=== PATIENT | female | born 1995 | race African-American/Black ===

== ENCOUNTER 2021-12-21 17:53 | Emergency (ER) | payer OTHER, SELFPAY ==
[2021-12-21 18:09] VITALS: BP 122/77; PULSE 114; RESP 16; TEMP 39.4; O2SAT 99
--- NOTE | 2021-12-21 18:34 | ED.URI ---
HPI - URI/Sore Throat General Chief Complaint: Upper Respiratory Infection Stated Complaint: Sore Throat, Fatique,Fever Time Seen by Provider: 12/21/21 18:35 Source: patient and RN notes reviewed Mode of arrival: ambulatory Limitations: no limitations History of Present Illness HPI Narrative: 26 y/o female presented for c/o headache, body aches, sinus pressure/congestion, cough, fever/chills. Onset 2 days. Sister positive for Covid today, Dtr positive flu this week. Denies shortness of breath, wheezing, nausea, vomiting or diarrhea. Taking Viola-Marsing for symptoms. MD elicited complaint: cough Related Data Allergies Allergy/AdvReac Type Severity Reaction Status Date / Time No Known Allergies Allergy Verified 12/21/21 18:05 Review of Systems Review of Systems: CONSTITUTIONAL: Endorses malaise, chills, sweats, fever EYES: Denies visual changes, redness, or discharge ENT: Reports rhinorrhea, congestion, sinus pain, denies otalgia, sore throat CARDIOVASCULAR: Denies chest pain, palpitations, edema RESPIRATORY: Reports cough, post nasal drainage. Denies dyspnea GASTROINTESTINAL: Denies abdominal pain, nausea, vomiting, diarrhea SKIN: Denies rash or itching MUSCULOSKELETAL: Endorses myalgia NEUROLOGIC: Denies headache Exam Narrative: GENERAL: Ill-appearing, nontoxic EYES: conjunctivae clear ENT: Mucous membranes moist. TMs pearly [place] with light reflex bilaterally; no tragal tenderness. Oropharynx erythematous without lesions or exudate CHEST: Clear to auscultation, breath sounds equal. No wheezing, rhonchi, rales, or stridor. No respiratory distress, speaks in full sentences. HEART: Regular rate and rhythm. SKIN: Warm, dry, no rash. NEURO: Alert and oriented x3. PSYCH: Normal mood and affect Course Course Emergency Course: Patient is aware of diagnosis, understands and agrees to treatment plan. Anticipatory guidance given. Patient agrees to follow-up as directed and is aware of reasons to seek care at the emergency department. Portions of this record may have been created with voice recognition software Level of Care: Express Care Visit Vital Signs Vital signs: Vital Signs Temperature 103.0 F H 12/21/21 18:09 Pulse Rate 114 H 12/21/21 18:09 Respiratory Rate 16 12/21/21 18:09 Blood Pressure 122/77 12/21/21 18:09 Pulse Oximetry 99 12/21/21 18:09 Oxygen Delivery Room Air 12/21/21 18:09 Temperature 103.0 F H 12/21/21 18:09 Pulse Rate 114 H 12/21/21 18:09 Respiratory Rate 16 12/21/21 18:09 Blood Pressure 122/77 12/21/21 18:09 Pulse Oximetry 99 12/21/21 18:09 Oxygen Delivery Room Air 12/21/21 18:09 reviewed MDM - URI/Sore Throat MDM Narrative Medical decision making narrative: Temp rechecked down to 100.2 per RN. COVID and flu negative. Results reviewed with patient. Advised supportive measures and signs/symptoms to go to the ER. Pt is appropriate for outpt treatment and f/u. Differential Diagnosis Differential diagnosis: Likely upper respiratory infection, sinusitis and viral infection Lab Data Labs: Lab Results 12/21/21 Range/Units 18:15 POC SARS CoV-2 Ag Negative (Negative) Influenza A Screen Negative Reference Range: Negative Influenza B Screen Negative Reference Range: Negative Discharge Plan Discharge Clinical Impression: Viral infection Patient Disposition: Home, Self-Care Condition: Stable Instructions: Viral Syndrome (ED) Additional Instructions: Flu and COVID negative. Recommend continue general precautions based on your symptoms and known exposure You can return to work when your fever free for 24 hours without the use of fever reducing medications Recommend Flonase spray and Zyrtec (or Claritin/Sue) for sinus congestion over the counter Cough syrup may cause drowsiness; avoid driving or kenny
[2021-12-21] MEDS: IBUPROFEN 400 MG TABLET 800 MG PO (19:00)
== END 2021-12-21 19:14 | disposition home or self-care (01) ==
PROVIDERS: Emergency Provider Nurse Practitioner Family
DX: B34.9 Viral infection, unspecified (principal); Z20.822 Contact with and (suspected) exposure to COVID-19
CPT/HCPCS: 87426; 87804; 99203; A9270; C9803; G0463

== ENCOUNTER 2022-12-07 09:10 | Emergency (ER) | payer OTHER, SELFPAY ==
--- NOTE | ~2022-12-07 | XR_ITS ---
EXAMINATION: XR chest 1V portable DATE: 12/07/2022 09:27 INDICATION: Chest pain. TECHNIQUE: A single frontal view of the chest was obtained. COMPARISON: None. FINDINGS: There is no pneumonia, pleural effusion, or pneumothorax. The heart size is normal. IMPRESSION: 1. No acute cardiopulmonary disease. Reviewed, dictated and finalized at location E.
--- NOTE | 2022-12-07 09:15 | ECG_ITS ---
Measurements Intervals [place] Rate: 76 P: 67 WA: 180 QRS: 66 QRSD: 98 T: 13 QT: 401 QTc: 452 Interpretive Statements SINUS RHYTHM NO PREVIOUS ECG AVAILABLE FOR COMPARISON Electronically Signed On 12-07-2022 12:58:28 CDT by Smitha Milligan M.D.
[2022-12-07 09:17] VITALS: BP 143/86; PULSE 69; RESP 16; TEMP 36.8; O2SAT 100
[2022-12-07 09:31] VITALS: BP 143/83; PULSE 64; RESP 17; TEMP 36.8; O2SAT 100
[2022-12-07 10:07] VITALS: BP 149/89; PULSE 56; RESP 18; O2SAT 100
[2022-12-07 10:13] LABS: Basophils Absolute Auto 0.1 K/mm3 (0.0-0.1); Basophils Percent Auto 0.8 % (0.2-1.2); Eosinophils Absolute Auto 0.2 K/mm3 (0-0.3); Eosinophils Percent Auto 2.3 % (0-4.4); Hematocrit 39.4 % (37.0-47.0); Hemoglobin 12.7 g/dL (12.0-15.0); Immature Granulocyte Absolute 0.01 K/mm3 (0.00-0.031); Immature Granulocyte Percent A 0.2 % (0-0.5); Lymphocytes Absolute Auto 2.23 K/mm3 (0.9-3.2); Lymphocytes Percent Auto 33.7 % (18.3-44.2); Mean Corpuscular HGB Conc 32.2 g/dl (32-36); Mean Corpuscular Hemoglobin 27.5 pg (26-34); Mean Corpuscular Volume 85.5 fl (80-100); Mean Platelet Volume 10.3 fl (7.4-10.4); Monocytes Absolute Auto 0.4 K/mm3 (0.1-0.6); Neutrophils Absolute Auto 3.8 K/mm3 (1.3-6.7); Platelet Count Result 311 k/mm3 (150-375); Red Blood Count 4.61 M/mm3 (4.2-5.4); Red Cell Distribution Width 14.2 % (11.5-14.5); White Blood Count 6.6 K/mm3 (4.5-10.0)
[2022-12-07 10:23] LABS: Alanine Aminotransferase 18 U/L (6-35); Albumin Level 4.2 g/dL (3.5-5.1); Alkaline Phosphatase 68 U/L (38-126); Anion Gap 8 mmol/L (8-16); Aspartate Amino Transferase 21 U/L (14-36); Bilirubin,Total 0.5 mg/dL (0.2-1.3); Blood Urea Nitrogen 12 mg/dL (7-17); Calcium 8.9 mg/dL (8.4-10.2); Carbon Dioxide 25 mmol/L (22-30); Chloride 106 mmol/L (98-107); Estimated CRCL calculation 174 ml/min; Estimated Glomerular Filt Rate > 60; Glucose 92 mg/dL (65-110); Lipase 27 U/L (23-300); Potassium 3.8 mmol/L (3.4-5.0); Sodium 139 mmol/L (137-145)
[2022-12-07 10:35] LABS: Troponin I < 0.012 ng/mL (0.000-0.034)
[2022-12-07 10:39] VITALS: BP 125/79; PULSE 60; RESP 13; O2SAT 99
[2022-12-07 11:11] VITALS: BP 145/91; PULSE 61; RESP 19; O2SAT 100
--- NOTE | 2022-12-07 18:58 | ED.CHESTPAIN ---
HPI - Chest Pain General Chief Complaint: Chest Pain Stated Complaint: chest pain onsey 12/06 @ 1999 Time Seen by Provider: 12/07/22 09:15 History of Present Illness HPI narrative: Patient presenting here with chest pain, started last night and has been constant, states that it is to her left chest, does not radiate. No difficulty breathing, nausea or vomiting. Is worse with certain movements of her left arm, does not think she hurt herself recently. Related Data Allergies Allergy/AdvReac Type Severity Reaction Status Date / Time No Known Allergies Allergy Verified 12/07/22 09:46 Review of Systems Review of Systems: CONST: No fever. HEENT: No sore throat C/V: chest pain RESP: No cough GI: No abdominal pain : No dysuria. M/S: No joint pain. SKIN: No rash. NEURO: [No headache or focal numbness or weakness] PSYCH: [No depression] Exam Narrative: EXAMINATION OF ORGAN SYSTEMS/BODY AREAS: Constitutional: Vital signs per nursing GENERAL:[No acute distress, non-toxic appearing.] HEAD: Normal with no signs of head trauma. EYES: EOMI, conjunctiva normal ENT: Hearing grossly intact LUNGS: Nonlabored breathing. Clear to auscultation bilaterally HEART: [Regular rate and rhythm] ABD: [Soft], [nontender to palpation] EXT: Normal range of motion SKIN: [No rashes or lesions.] NEURO: [Alert and oriented x 3. No gross focal sensory or strength deficits.] PSYCH: Normal affect Course Vital Signs Vital signs: Vital Signs Temperature 98.2 F 12/07/22 09:17 Pulse Rate 69 12/07/22 09:17 Respiratory Rate 16 12/07/22 09:17 Blood Pressure 143/86 H 12/07/22 09:17 Pulse Oximetry 100 12/07/22 09:17 Oxygen Delivery Room Air 12/07/22 09:17 Temperature 98.2 F 12/07/22 09:31 Pulse Rate 61 12/07/22 11:11 Respiratory Rate 19 12/07/22 11:11 Blood Pressure 145/91 H 12/07/22 11:11 Pulse Oximetry 100 12/07/22 11:11 Oxygen Delivery Room Air 12/07/22 09:31 MDM - Chest Pain MDM Narrative Medical decision making narrative: ED COURSE AND MEDICAL DECISION MAKINF presenting with chest pain. EKG done in triage negative for acute ischemic changes. Cardiac workup is initiated. EKG: Performed in triage and interpreted by me. Normal sinus rhythm. Rate [76]. Normal axis. WI normal. QRS duration normal. QTc normal. No pathologic Q waves. No ST segment elevation or depression to suggest acute ischemia. No RV strain pattern. HEART score is 0 with no acute ischemic changes on EKG and negative troponin making ACS unlikely. Wells low risk with negative PERC making PE unlikely. Presentation not consistent with dissection or aneurysm without radiation of pain or pulse deficits. CXR negative for mediastinal widening. No abdominal pain or signs of sepsis that would be concerning for esophageal perforation or mediastinitis. No cardiomegaly or JVD to suggest pericardial effusion/tamponade. On repeat evaluation just prior to discharge, the patient is no acute distress. I had a long discussion with the patient and with shared decision making, she is comfortable with outpatient management. She was given clear return instructions by myself in person as well as on discharge paperwork. Lab Data 12/07/22 10:09 12/07/22 10:09 Labs: Lab Results 12/07/22 Range/Units 10:09 WBC 6.6 (4.5-10.0) K/mm3 RBC 4.61 (4.2-5.4) M/mm3 Hgb 12.7 (12.0-15.0) g/dL Hct 39.4 (37.0-47.0) % MCV 85.5 (80-100) fl MCH 27.5 (26-34) pg MCHC 32.2 (32-36) g/dl RDW 14.2 (11.5-14.5) % Plt Count 311 (150-375) k/mm3 MPV 10.3 (7.4-10.4) fl Immature Gran % (Auto) 0.2 (0-0.5) % Neut % (Auto) 57.0 (45.5-73.1) % Lymph % (Auto) 33.7 (18.3-44.2) % Steele % (Auto) 6.0 (2.6-8.5) % Eos % (Auto) 2.3 (0-4.4) % Baso % (Auto) 0.8 (0.2-1.2) % Lymph # (Auto) 2.23 (0.9-3.2) K/mm3 Steele # (Auto) 0.4 (0.1-0.6) K/mm3 Eos # (Auto) 0.2 (0-0.3) K/mm3 Baso # (Auto) 0.1
== END 2022-12-07 11:12 | disposition home or self-care (01) ==
PROVIDERS: Emergency Provider Emergency Medicine
DX: R07.9 Chest pain, unspecified (principal)
CPT/HCPCS: 36415; 71045; 80053; 83690; 84484; 85025; 93005; 99284

== ENCOUNTER 2023-02-28 13:58 | Emergency (ER) | payer SELFPAY ==
[2023-02-28 14:09] VITALS: BP 135/98; PULSE 108; RESP 16; TEMP 38.8; O2SAT 99
[2023-02-28 14:34] VITALS: TEMP 38.8
[2023-02-28] MEDS: ACETAMINOPHEN 500 MG TABLET 1000 MG PO (14:34)
--- NOTE | 2023-02-28 14:37 | ED.URI ---
HPI - URI/Sore Throat General Chief Complaint: Upper Respiratory Infection Stated Complaint: bodyaches,headache,tight chest,feverish Time Seen by Provider: 02/28/23 14:25 Source: patient Mode of arrival: ambulatory Limitations: no limitations History of Present Illness HPI Narrative: 27 yo F presents with c/o nasal congestion, scratchy throat, bodyaches, chills, cough and feverish starting last night. did not check temp. Not taking any medications to treat symptoms. Denies N/v/d. all systems reviewed and negative except as noted above. Related Data Allergies Allergy/AdvReac Type Severity Reaction Status Date / Time No Known Allergies Allergy Verified 02/28/23 14:07 Review of Systems Review of Systems: CONSTITUTIONAL: Denies fever, chills, or sweats. reports fatigue. EYES: Denies visual changes, redness, or discharge. ENT: reports rhinorrhea, congestion, sore throat. Denies otalgia. CARDIOVASCULAR: Denies chest pain, palpitations, or edema. RESPIRATORY: Reports cough . Denies dyspnea. GASTROINTESTINAL: Denies abdominal pain, nausea, vomiting, or diarrhea. GENITOURINARY: Denies dysuria or hematuria. SKIN: Denies rash or itching. MUSCULOSKELETAL: Denies back pain, joint pain, or myalgia. NEUROLOGIC: Denies headache, numbness, or weakness. PSYCHIATRIC: Denies anxiety or depression. All other systems reviewed are negative, except as documented in HPI. PMFSH Comments At time of signature, agree with nursing past medical, surgical, social and family history. There is no relevant family history pertinent to the presenting complaint. Exam Narrative: GENERAL: This is a well-nourished, well-developed patient, in no apparent distress. HEAD: normocephalic, atraumatic. EYES: PERRL. Sclera clear/white. Vision is grossly intact. EARS: External ears normal, auditory canals clear and without drainage, TMs normal without perforation. Hearing grossly intact. NOSE: External nose normal with clear nasal drainage THROAT: Mucous membranes moist, posterior pharynx clear. NECK: Neck supple, non-tender without lymphadenopathy, masses or thyromegaly. CARDIOVASCULAR: Regular rate and rhythm without murmurs, gallops, or rubs. RESPIRATORY: Clear to auscultation. Breath sounds equal bilaterally. No wheezes, rales, or rhonchi. SKIN: warm, Dry, intact with no suspicious lesions or rash, good texture and turgor. NEURO: awake, alert, and oriented to person, place and time. There were no obvious focal neurologic abnormalities. EXTREMITIES: No joint tenderness, effusion, or edema noted. Course Course Level of Care: Express Care Visit Vital Signs Vital signs: Vital Signs Temperature 38.8 C H 02/28/23 14:09 Pulse Rate 108 H 02/28/23 14:09 Respiratory Rate 16 02/28/23 14:09 Blood Pressure 135/98 H 02/28/23 14:09 Pulse Oximetry 99 02/28/23 14:09 Oxygen Delivery Room Air 02/28/23 14:09 Temperature 38.8 C H 02/28/23 14:34 Pulse Rate 108 H 02/28/23 14:09 Respiratory Rate 16 02/28/23 14:09 Blood Pressure 135/98 H 02/28/23 14:09 Pulse Oximetry 99 02/28/23 14:09 Oxygen Delivery Room Air 02/28/23 14:09 reviewed, patient given Tylenol to treat fever MDM - URI/Sore Throat MDM Narrative Medical decision making narrative: At time of signature, agree with nursing past medical, surgical, social and family history. There is no relevant family history pertinent to the presenting complaint. Differential Diagnosis Differential diagnosis: Likely upper respiratory infection and viral infection Lab Data Labs: Influenza A Screen Negative Reference Range: Negative Influenza B Screen Negative Reference Range: Negative Discharge Plan Discharge Clinical Impression: Viral upper respiratory infection Patient Disposition: Home, Self-Care Condition: Stable Instructio
== END 2023-02-28 14:43 | disposition home or self-care (01) ==
PROVIDERS: Emergency Provider Nurse Practitioner Family
DX: J06.9 Acute upper respiratory infection, unspecified (principal)
CPT/HCPCS: 87426; 87804; 99213; A9270; G0463

== ENCOUNTER 2024-03-12 17:50 | Emergency (ER) | payer SELFPAY ==
[2024-03-12 18:05] VITALS: BP 120/73; PULSE 120; RESP 16; TEMP 39; O2SAT 99
[2024-03-12 18:54] LABS: EDCOVIDSCREEN Negative (Negative); EDINFLUASCREEN Positive (Negative); EDINFLUBSCREEN Negative (Negative)
--- NOTE | 2024-03-12 19:04 | ED.URI ---
HPI - URI/Sore Throat General Chief Complaint: Upper Respiratory Infection Stated Complaint: fever,BORJA,bodyaches,fatigue Time Seen by Provider: 03/12/24 18:48 Source: patient and RN notes reviewed Mode of arrival: ambulatory Limitations: no limitations History of Present Illness HPI Narrative: Patient presents today with a 2 day history of fever up to 103, headache, body aches, fatigue, congestion, rhinorrhea, cough. Denies shortness of breath or chest pain. She has tried ibuprofen without much relief. Son with similar symptoms. Related Data Allergies Allergy/AdvReac Type Severity Reaction Status Date / Time No Known Allergies Allergy Verified 03/12/24 18:09 Review of Systems Review of Systems: CONSTITUTIONAL: + body aches, fever, fatigue EYES: Denies visual changes, redness, or discharge. ENT: Denies sore throat, or otalgia.+ rhinorrhea, congestion CARDIOVASCULAR: Denies chest pain, palpitations, or edema. RESPIRATORY: Denies dyspnea.+ cough GASTROINTESTINAL: Denies abdominal pain, nausea, vomiting, or diarrhea. GENITOURINARY: Denies dysuria or hematuria. SKIN: Denies rash, itching, or wounds. MUSCULOSKELETAL: Denies back pain, joint pain, or myalgia. NEUROLOGIC: Denies numbness, tingling, or weakness.+ headache PSYCH: Denies depression or anxiety. PMFSH Comments At time of signature, I have reviewed and agree with nursing past medical, surgical, social and family history unless otherwise noted. Please see nursing chart for further information. There is no relevant family history pertinent to the presenting complaint Exam Narrative: GENERAL: Mildly ill-appearing, well-nourished, and in no acute distress. HEAD: Normocephalic, atraumatic. EYES: EOMI. No redness or drainage. Conjunctivae normal. ENT: Mucous membranes pink and moist. Nares congested. No rhinorrhea. TMs normal bilaterally. Throat normal. Uvula midline. NECK: Normal AROM. Supple. No lymphadenopathy. CHEST: No respiratory distress. Clear to auscultation. HEART: Tachycardia. Normal rhythm. No murmur appreciated. EXTREMITIES: Normal range of motion. No edema. SKIN: Warm, dry, no rash. Capillary refill normal. Normal skin turgor. NEURO: No focal deficits. Alert and oriented x3. Gait steady. PSYCH: Normal affect. No signs of depression or anxiety. Course Course Level of Care: Express Care Visit Vital Signs Vital signs: Vital Signs Temperature 102.2 F H 03/12/24 18:05 Pulse Rate 120 H 03/12/24 18:05 Respiratory Rate 16 03/12/24 18:05 Blood Pressure 120/73 03/12/24 18:05 Pulse Oximetry 99 03/12/24 18:05 Oxygen Delivery Room Air 03/12/24 18:05 Temperature 102.2 F H 03/12/24 18:05 Pulse Rate 120 H 03/12/24 18:05 Respiratory Rate 16 03/12/24 18:05 Blood Pressure 120/73 03/12/24 18:05 Pulse Oximetry 99 03/12/24 18:05 Oxygen Delivery Room Air 03/12/24 18:05 Reviewed MDM - URI/Sore Throat MDM Narrative Medical decision making narrative: COVID negative. Influenza a positive. Prescription for Tamiflu sent to pharmacy. Anticipatory guidance given. Differential Diagnosis Differential diagnosis: Likely upper respiratory infection, sinusitis, viral infection, influenza and other (COVID-19) Lab Data Attestation: I reviewed the patient's lab results. Labs: Lab Results 03/12/24 Range/Units 18:18 POC Influenza A Ag Positive (Negative) POC Influenza B Ag Negative (Negative) POC SARS CoV-2 Ag Negative (Negative) Critical Care Time Critical Care Time Critical Care Time: No Discharge Plan Discharge Clinical Impression: Influenza A Patient Disposition: Home, Self-Care Condition: Stable Instructions: Influenza (DC) Additional Instructions: You have tested positive for influenza A. Please take the Tamiflu as prescribed until gone. Continue [id number] medication for pain or fever. Follow-up with your PCP in 1 week if symptoms are not improving. Go to the ER if symptoms worsen to include shortness of breath, chest pain, persistent fever past 5 days. Patient Language: Romansh Prescriptions: New oseltamivir [Tamiflu] 75 mg capsule 75 mg PO Q12H 5 Days Qty: 10 0RF Follow-up/Referrals: [facility] [Primary Care Provider] - Stand Alone Forms: Work/School Release IP Time of Disposition: 19:07
== END 2024-03-12 19:13 | disposition home or self-care (01) ==
PROVIDERS: Emergency Provider Nurse Practitioner
DX: J10.1 Influenza due to other identified influenza virus with other respiratory manifestations (principal); Z20.822 Contact with and (suspected) exposure to COVID-19
CPT/HCPCS: 87426; 87804; 99213; G0463